=== PATIENT | male | born 1940 | race Caucasian/White ===

== ENCOUNTER 2016-12-16 17:02 | Inpatient (IN) | payer MEDICARE, BC ==
[~2016-12-16] VITALS: Ht 177.8 cm; Wt 83.0 kg
[~2016-12-16 17:02] MED LIST: AMLO10TA2 PO; ASPI-515 PO; ATOR20TA9 PO; BUDE10.2 INH; CARV12.52 PO; DABI150C PO; ESTA2TAB PO; LISI40TA PO
[2016-12-16] MEDS ORDERED: SODIUM CHLORIDE FLUSH 10ML SYR IVF ONE (18:30)
[2016-12-16] MEDS ORDERED: SODIUM CHLORIDE 0.9% 1,000ML IVBOLUS ONE (18:30)
[2016-12-16] MEDS ORDERED: IDARUCIZUMAB 2.5 GM/50 ML IVPB ONE (19:30)
[2016-12-16] MEDS ORDERED: SODIUM CHLORIDE 0.9% 1,000 ML IV SCH (19:59)
[2016-12-16] MEDS ORDERED: POLYETHYLENE GLYCOL 17 GM PACKET PO PRN (20:00)
[2016-12-16] MEDS ORDERED: ONDANSETRON 2MG/ML, 2ML IVPush PRN (20:00)
[2016-12-16] MEDS ORDERED: morphine SULFATE 10 MG/ML, 1ML IVPush PRN (20:00)
[2016-12-16] MEDS ORDERED: ATORVASTATIN 20 MG TABLET PO PRN (20:00)
[2016-12-16] MEDS ORDERED: ACETAMINOPHEN 325 MG TABLET PO PRN (20:00)
[2016-12-16] MEDS ORDERED: hydrALAzine 20 MG/ML, 1ML IVPush PRN (20:00)
[2016-12-16] MEDS ORDERED: OXYcodone IR 5MG TABLET PO PRN (20:00)
[2016-12-16] MEDS ORDERED: BISACODYL 10 MG SUPP PR PRN (20:00)
[2016-12-16 20:14] VITALS: BP 165/83
[2016-12-16 20:29] VITALS: BP 145/84
[2016-12-16] MEDS: CARVEDILOL 12.5 MG TABLET PO SCH ×2 (20:30→21:00)
[2016-12-16] MEDS: AMLODIPINE 5 MG TABLET PO SCH ×2 (21:00→21:37)
[2016-12-16] MEDS: ENALAPRILAT 1.25 MG/ML, 2ML IVPush PRN (21:18)
[2016-12-16] MEDS ORDERED: CLEVIDIPINE 50 ML IV PRN (22:00)
[2016-12-16] MEDS ORDERED: hydrALAzine 20 MG/ML, 1ML ONE (22:08)
[2016-12-16] MEDS: hydrALAzine 20 MG/ML, 1ML IVPush PRN (22:12)
[2016-12-16 23:17] VITALS: BP 160/87
[2016-12-16 23:28] VITALS: BP 177/86
[2016-12-16 23:30] VITALS: BP 177/86
[2016-12-16] MEDS: CLEVIDIPINE 50 ML IV PRN (23:50)
[2016-12-17] LABS: PATH.CAST-FLAG NOT PRESENT; SPERM-FLAG NOT PRESENT; SRC-FLAG NOT PRESENT; XTAL-FLAG NOT PRESENT; YLC-FLAG NOT PRESENT
[2016-12-17 01:01] VITALS: BP 144/74
[2016-12-17 02:15] LABS: ASPARTATE AMINO TRANSFERASE 26 U/L (15-37); BLOOD UREA NITROGEN 16 mg/dL (7-18)
[2016-12-17 03:07] VITALS: BP 133/69
[2016-12-17 03:19] VITALS: BP 143/68
[2016-12-17 04:00] VITALS: BP 129/63
[2016-12-17] MEDS: CLEVIDIPINE 50 ML IV PRN ×2 (04:53→06:39)
[2016-12-17 04:54] VITALS: BP 137/63
[2016-12-17] MEDS ORDERED: FURO-93 PO (05:23)
[2016-12-17] MEDS ORDERED: CARVEDILOL 12.5 MG TABLET PO SCH (09:00)
[2016-12-17] MEDS ORDERED: TEMPLATE NON-FORMULARY MED. (Amlodipine Besylate (Amlodipine Besylate**) 5 MG) PO SCH (09:00)
[2016-12-17] MEDS: CARVEDILOL 12.5 MG TABLET PO SCH ×2 (10:48→20:55)
[2016-12-17] MEDS: AMLODIPINE 5 MG TABLET PO SCH ×2 (10:48→20:54)
[2016-12-17] MEDS: SENNA/DOCUSATE TABLET PO SCH (10:48)
[2016-12-17] MEDS: LISINOPRIL 20 MG TABLET PO SCH (10:49)
[2016-12-17] MEDS ORDERED: GADOBUTROL 7.5 MMOL/7.5 ML PFS ONE (13:42)
[2016-12-17] MEDS: hydrALAzine 20 MG/ML, 1ML IVPush PRN ×2 (13:42→16:10)
[2016-12-17] MEDS: ENALAPRILAT 1.25 MG/ML, 2ML IVPush PRN (13:42)
[2016-12-17] MEDS ORDERED: ENALAPRILAT 1.25 MG/ML, 2ML IVPush PRN (16:00)
[2016-12-17] MEDS: FERROUS SULFATE 325 MG TABLET PO SCH (16:10)
[2016-12-18 04:00] VITALS: BP 150/60
[2016-12-18] MEDS: hydrALAzine 20 MG/ML, 1ML IVPush PRN (04:03)
[2016-12-18 04:57] LABS: BLOOD UREA NITROGEN 17 mg/dL (7-18)
[2016-12-18] MEDS: AMLODIPINE 5 MG TABLET PO SCH ×2 (08:58→20:39)
[2016-12-18] MEDS: FERROUS SULFATE 325 MG TABLET PO SCH ×2 (08:58→18:43)
[2016-12-18] MEDS: CARVEDILOL 12.5 MG TABLET PO SCH ×2 (08:58→20:39)
[2016-12-18] MEDS: SENNA/DOCUSATE TABLET PO SCH (08:58)
[2016-12-18] MEDS: LISINOPRIL 20 MG TABLET PO SCH (08:58)
[2016-12-18 13:53] VITALS: BP 116/72
[2016-12-18] MEDS: FUROSEMIDE 20 MG TABLET PO SCH (14:04)
[2016-12-18] MEDS: POTASSIUM CHLORIDE 20 MEQ TAB.ER.PRT PO SCH (14:05)
[2016-12-18 18:53] VITALS: BP 138/71
[2016-12-19 01:55] VITALS: BP 151/86
[2016-12-19 05:15] VITALS: BP 156/84
[2016-12-19] MEDS: hydrALAzine 20 MG/ML, 1ML IVPush PRN (05:15)
[2016-12-19 06:22] LABS: BLOOD UREA NITROGEN 20 mg/dL (7-18)
[2016-12-19 07:10] VITALS: BP 140/79
[2016-12-19] MEDS: FUROSEMIDE 20 MG TABLET PO SCH (08:38)
[2016-12-19] MEDS: POTASSIUM CHLORIDE 20 MEQ TAB.ER.PRT PO SCH (08:38)
[2016-12-19] MEDS: LISINOPRIL 20 MG TABLET PO SCH (08:38)
[2016-12-19] MEDS: FERROUS SULFATE 325 MG TABLET PO SCH (08:38)
[2016-12-19] MEDS: CARVEDILOL 12.5 MG TABLET PO SCH (08:38)
[2016-12-19] MEDS: SENNA/DOCUSATE TABLET PO SCH (08:38)
[2016-12-19] MEDS: AMLODIPINE 5 MG TABLET PO SCH (08:38)
[2016-12-19] MEDS ORDERED: POTA20TA6 PO (11:35)
[2016-12-19] MEDS ORDERED: AMLO10TA2 PO (11:35)
== END 2016-12-19 14:30 | disposition home or self-care (01) | DRG 545 ==
LOC: ED 17:54 → EDIP 19:47 → CCU 20:51 → 4EST 12-18 14:43 → DCLOUNGE 12-19 13:27
PROVIDERS: ADMIT Internal Medicine; ATTEND Internal Medicine
PROC: 30233L1 Transfusion of Nonautologous Fresh Plasma into Peripheral Vein, Percutaneous Approach (ICD-10-PCS; principal; 2016-12-16)
PROC: 30233K1 Transfusion of Nonautologous Frozen Plasma into Peripheral Vein, Percutaneous Approach (ICD-10-PCS; 2016-12-16)
DX: E85.4 Organ-limited amyloidosis (principal); I61.5 Nontraumatic intracerebral hemorrhage, intraventricular; N17.0 Acute kidney failure with tubular necrosis; G93.6 Cerebral edema; D68.69 Other thrombophilia; D50.9 Iron deficiency anemia, unspecified; E78.5 Hyperlipidemia, unspecified; F03.90 Unspecified dementia, unspecified severity, without behavioral disturbance, psychotic disturbance, mood disturbance, and anxiety; G47.00 Insomnia, unspecified; Z96.653 Presence of artificial knee joint, bilateral; I25.10 Atherosclerotic heart disease of native coronary artery without angina pectoris; I10 Essential (primary) hypertension; I48.91 Unspecified atrial fibrillation; J44.9 Chronic obstructive pulmonary disease, unspecified; Z86.73 Personal history of transient ischemic attack (TIA), and cerebral infarction without residual deficits; Z95.1 Presence of aortocoronary bypass graft; Z79.82 Long term (current) use of aspirin; Z79.899 Other long term (current) drug therapy; Z82.49 Family history of ischemic heart disease and other diseases of the circulatory system; Z87.891 Personal history of nicotine dependence; I68.0 Cerebral amyloid angiopathy
CPT/HCPCS: 36415; 36430; 70450; 70544; 70553; 80047; 80048; 80053; 80061; 81001; 82728; 83036; 83540; 83550; 83735; 84439; 84443; 84478; 85025; 85610; 85730; 86850; 86900; 87081; 93005; 93306; 93880; 96360; A9585; C9248; J0360; J7030; P9017

== ENCOUNTER 2017-06-17 09:29 | Inpatient (IN) | payer MEDICARE, BC ==
[~2017-06-17] VITALS: Ht 177.8 cm; Wt 73.3 kg
[~2017-06-17 09:29] MED LIST changes: +FURO-93 PO; +POTA20TA6 PO
[2017-06-17] MEDS ORDERED: SODIUM CHLORIDE FLUSH 10ML SYR IVF ONE (10:00)
[2017-06-17 10:16] LABS: BLOOD UREA NITROGEN 17 mg/dL (7-18)
[2017-06-17 10:23] LABS: IS PT STATUS REG ER OR PRE ER? YES
[2017-06-17 10:43] LABS: ANISOCYTOSIS 2+; HEMATOCRIT 42.6 % (39.2-51.8); HEMOGLOBIN 14.1 g/dL (13.7-18.0); OVALOCYTES 1+; POLYCHROMASIA 1+
[2017-06-17 10:44] LABS: SCHISTOCYTES 1+
[2017-06-17 10:46] LABS: LARGE PLATELETS 1+
[2017-06-17] MEDS ORDERED: FURO-93 PO (10:52)
[2017-06-17] MEDS ORDERED: DONE10TA7 PO (10:52)
[2017-06-17] MEDS ORDERED: ESTA2TAB PO (10:54)
[2017-06-17] MEDS ORDERED: CARV12.543 PO (10:54)
[2017-06-17] MEDS ORDERED: APIX2.5T PO (10:54)
[2017-06-17] MEDS ORDERED: LISI40TA PO (10:56)
[2017-06-17] MEDS ORDERED: ATOR10TA9 PO (10:58)
[2017-06-17] MEDS ORDERED: ONDANSETRON ODT 4 MG PO PRN (12:00)
[2017-06-17] MEDS ORDERED: ONDANSETRON 2MG/ML, 2ML IVPush PRN (12:00)
[2017-06-17] MEDS ORDERED: SODIUM CHLORIDE FLUSH 10ML SYR IVF PRN (12:00)
[2017-06-17] MEDS: SODIUM CHLORIDE 0.9% 1,000 ML IV SCH (12:35)
[2017-06-17 12:40] VITALS: BP 167/87
[2017-06-17] MEDS ORDERED: GADOBUTROL 7.5 MMOL/7.5 ML PFS ONE (16:17)
[2017-06-17 17:00] VITALS: BP 164/82
[2017-06-17 18:52] VITALS: BP 147/76
[2017-06-17] MEDS: ATORVASTATIN 80 MG TABLET PO SCH (21:09)
[2017-06-17] MEDS: AMLODIPINE 5 MG TABLET PO SCH (21:09)
[2017-06-18 01:51] VITALS: BP 164/84
[2017-06-18 05:24] LABS: HEMATOCRIT 42.2 % (39.2-51.8); HEMOGLOBIN 13.9 g/dL (13.7-18.0)
[2017-06-18] MEDS: SODIUM CHLORIDE 0.9% 1,000 ML IV SCH ×2 (05:29→16:38)
[2017-06-18 05:44] LABS: BLOOD UREA NITROGEN 17 mg/dL (7-18)
[2017-06-18 07:08] VITALS: BP 176/89
[2017-06-18] MEDS ORDERED: FUROSEMIDE 40 MG TABLET ONE (08:02)
[2017-06-18] MEDS: DONEPEZIL 10 MG TABLET PO SCH (08:55)
[2017-06-18] MEDS: LISINOPRIL 20 MG TABLET PO SCH (08:55)
[2017-06-18] MEDS: AMLODIPINE 5 MG TABLET PO SCH (08:55)
[2017-06-18] MEDS: POTASSIUM CHLORIDE 20 MEQ TAB.ER.PRT PO SCH (08:55)
[2017-06-18] MEDS: FUROSEMIDE 20 MG TABLET PO SCH (08:56)
[2017-06-18 13:40] VITALS: BP 147/66
[2017-06-18 18:36] VITALS: BP 159/73
[2017-06-18] MEDS: ATORVASTATIN 80 MG TABLET PO SCH (21:15)
[2017-06-18] MEDS: APIXABAN 2.5 MG TABLET PO SCH (21:15)
[2017-06-19] VITALS (7 sets, daily range): BP systolic 130–180; BP diastolic 41–91
[2017-06-19] MEDS ORDERED: hydrALAzine 20 MG/ML, 1ML ONE (01:29)
[2017-06-19] MEDS ORDERED: hydrALAzine 20 MG/ML, 1ML IV ONE (01:30)
[2017-06-19] MEDS ORDERED: hydrALAzine 20 MG/ML, 1ML IV PRN (01:30)
[2017-06-19] MEDS: SODIUM CHLORIDE 0.9% 1,000 ML IV SCH (05:34)
[2017-06-19 05:44] LABS: BLOOD UREA NITROGEN 16 mg/dL (7-18)
[2017-06-19] MEDS ORDERED: FUROSEMIDE 40 MG TABLET ONE (08:24)
[2017-06-19] MEDS: APIXABAN 2.5 MG TABLET PO SCH ×2 (08:37→19:54)
[2017-06-19] MEDS: ACETAMINOPHEN 325 MG TABLET PO PRN (08:37)
[2017-06-19] MEDS: LISINOPRIL 20 MG TABLET PO SCH (08:38)
[2017-06-19] MEDS: DONEPEZIL 10 MG TABLET PO SCH (08:38)
[2017-06-19] MEDS: POTASSIUM CHLORIDE 20 MEQ TAB.ER.PRT PO SCH (08:38)
[2017-06-19] MEDS: FUROSEMIDE 20 MG TABLET PO SCH (08:38)
[2017-06-19] MEDS ORDERED: TEMAZEPAM 15 MG CAPSULE PO PRN (09:30)
[2017-06-19] MEDS ORDERED: POTASSIUM CHLORIDE 20 MEQ TAB.ER.PRT PO ONE (09:30)
[2017-06-19] MEDS ORDERED: LABETALOL 5MG/ML, 20ML IVPush PRN (09:30)
[2017-06-19 12:45] LABS: IS PT STATUS REG ER OR PRE ER? NO
[2017-06-19 16:38] LABS: IS PT STATUS REG ER OR PRE ER? NO
[2017-06-19] MEDS: ATORVASTATIN 80 MG TABLET PO SCH (19:54)
[2017-06-19] MEDS: CARVEDILOL 12.5 MG TABLET PO SCH (20:17)
[2017-06-19 21:17] LABS: PATH.CAST-FLAG NOT PRESENT; SPERM-FLAG NOT PRESENT; SRC-FLAG NOT PRESENT; XTAL-FLAG NOT PRESENT; YLC-FLAG NOT PRESENT
[2017-06-20 02:20] VITALS: BP 165/82
[2017-06-20 06:02] LABS: BLOOD UREA NITROGEN 26 mg/dL (7-18)
[2017-06-20] MEDS: SODIUM CHLORIDE 0.9% 1,000 ML IV SCH (06:18)
[2017-06-20 06:57] VITALS: BP 182/88
[2017-06-20] MEDS ORDERED: REGADENOSON 0.4 MG/5 ML SYRINGE ONE (08:20)
[2017-06-20] MEDS ORDERED: FUROSEMIDE 40 MG TABLET ONE (10:08)
[2017-06-20 10:16] VITALS: BP 180/91
[2017-06-20] MEDS: CARVEDILOL 12.5 MG TABLET PO SCH ×2 (10:17→20:43)
[2017-06-20] MEDS: DONEPEZIL 10 MG TABLET PO SCH (10:17)
[2017-06-20] MEDS: APIXABAN 2.5 MG TABLET PO SCH ×2 (10:17→20:43)
[2017-06-20] MEDS: FUROSEMIDE 20 MG TABLET PO SCH (10:18)
[2017-06-20] MEDS: LISINOPRIL 20 MG TABLET PO SCH (10:18)
[2017-06-20] MEDS: POTASSIUM CHLORIDE 20 MEQ TAB.ER.PRT PO SCH (10:29)
[2017-06-20 12:15] VITALS: BP 154/83
[2017-06-20 14:00] VITALS: BP 148/73
[2017-06-20 19:29] VITALS: BP 163/81
[2017-06-20] MEDS: ATORVASTATIN 80 MG TABLET PO SCH (20:43)
[2017-06-21] MEDS: SODIUM CHLORIDE 0.9% 1,000 ML IV SCH (00:13)
[2017-06-21] MEDS: ACETAMINOPHEN 325 MG TABLET PO PRN (00:13)
[2017-06-21 02:30] VITALS: BP 160/75
[2017-06-21 04:13] VITALS: BP 165/87
[2017-06-21 05:30] LABS: BLOOD UREA NITROGEN 28 mg/dL (7-18)
[2017-06-21 07:15] VITALS: BP 187/82
[2017-06-21] MEDS ORDERED: FUROSEMIDE 40 MG TABLET ONE (07:37)
[2017-06-21] MEDS: APIXABAN 2.5 MG TABLET PO SCH (07:41)
[2017-06-21] MEDS: POTASSIUM CHLORIDE 20 MEQ TAB.ER.PRT PO SCH (07:41)
[2017-06-21] MEDS: CARVEDILOL 12.5 MG TABLET PO SCH (07:42)
[2017-06-21] MEDS: FUROSEMIDE 20 MG TABLET PO SCH (07:42)
[2017-06-21] MEDS: DONEPEZIL 10 MG TABLET PO SCH (07:42)
[2017-06-21] MEDS: LISINOPRIL 20 MG TABLET PO SCH (07:44)
[2017-06-21] MEDS ORDERED: AMLO10TA2 PO (12:44)
[2017-06-21] MEDS ORDERED: AMLODIPINE 5 MG TABLET PO SCH (13:00)
[2017-06-21 15:11] VITALS: BP 188/98
== END 2017-06-21 16:52 | DRG 64 ==
LOC: ED 11:30 → EDIP 11:42 → 4WST 12:34 → 5SO 14:47
PROVIDERS: ADMIT Internal Medicine; ATTEND Internal Medicine
DX: I63.9 Cerebral infarction, unspecified (principal); N17.0 Acute kidney failure with tubular necrosis; E44.0 Moderate protein-calorie malnutrition; D68.69 Other thrombophilia; G81.94 Hemiplegia, unspecified affecting left nondominant side; I95.9 Hypotension, unspecified; G93.89 Other specified disorders of brain; E83.52 Hypercalcemia; I13.0 Hypertensive heart and chronic kidney disease with heart failure and stage 1 through stage 4 chronic kidney disease, or unspecified chronic kidney disease; I50.9 Heart failure, unspecified; R27.0 Ataxia, unspecified; R47.81 Slurred speech; E78.5 Hyperlipidemia, unspecified; F03.90 Unspecified dementia, unspecified severity, without behavioral disturbance, psychotic disturbance, mood disturbance, and anxiety; I48.2 Chronic atrial fibrillation; Z96.653 Presence of artificial knee joint, bilateral; Z60.2 Problems related to living alone; N18.9 Chronic kidney disease, unspecified; R29.703 NIHSS score 3; I65.23 Occlusion and stenosis of bilateral carotid arteries; Q89.9 Congenital malformation, unspecified; Z79.01 Long term (current) use of anticoagulants; Z82.0 Family history of epilepsy and other diseases of the nervous system; Z82.49 Family history of ischemic heart disease and other diseases of the circulatory system; Z86.73 Personal history of transient ischemic attack (TIA), and cerebral infarction without residual deficits; Z95.1 Presence of aortocoronary bypass graft; Z68.23 Body mass index [BMI] 23.0-23.9, adult
CPT/HCPCS: 36415; 70450; 70544; 70553; 71010; 78452; 80047; 80048; 80061; 81001; 82040; 82607; 83735; 84100; 84484; 85025; 85610; 85730; 93005; 93017; 93306; 93880; 99285; A9585; J2785; 92523-GN; A9502; C9898; J0360; J7030